=== PATIENT | male | born 1950 | race Caucasian/White ===

== ENCOUNTER 2020-05-19 09:52 | Day surgery (SDC) | payer OTHER ==
[~2020-05-19] VITALS: Ht 180.3 cm; Wt 87.3 kg
[2020-05-19] VITALS (9 sets, daily range): BP systolic 123–150; BP diastolic 71–102
[2020-05-19] MEDS ORDERED: LORazepam 0.5 MG tablet PO PRN (10:30)
[2020-05-19] MEDS ORDERED: diphenhydrAMINE 25mg capsule PO PRN (10:30)
[2020-05-19] MEDS ORDERED: OMEG-167 PO (10:47)
[2020-05-19] MEDS ORDERED: sodium bicarbonate (8.4%) inj. 150 ML in dextrose 5%-water 1,000 ML IV ONE (11:00)
[2020-05-19] MEDS ORDERED: DOCO100C PO (11:01)
[2020-05-19] MEDS ORDERED: GLUC-193 PO (11:01)
[2020-05-19] MEDS ORDERED: ZINC50TA67 PO (11:01)
[2020-05-19] MEDS ORDERED: UBID200C18 PO (11:01)
[2020-05-19] MEDS ORDERED: POTA99TA21 PO (11:01)
[2020-05-19] MEDS ORDERED: ASPI-611 PO (11:01)
[2020-05-19] MEDS ORDERED: CALC-336 PO (11:01)
[2020-05-19] MEDS ORDERED: MULT-1249 PO (11:01)
[2020-05-19] MEDS ORDERED: VITA400C67 PO (11:01)
[2020-05-19 11:31] LABS: ALBUMIN 3.6 G/DL (3.4-5.0); ANION GAP 6 (8-16); BLOOD UREA NITROGEN 21 MG/DL (7-18); BUN/CREATININE RATIO 20.6 (5.4-32.0); CHLORIDE 106 MMOL/L (99-107); CREATININE 1.02 MG/DL (0.60-1.10); GLUCOSE 92 MG/DL (70-104); SODIUM 141 MMOL/L (135-145); TOTAL CARBON DIOXIDE 29.3 MMOL/L (24-32); eGFR 72 ML/MIN
[2020-05-19 11:34] LABS: PARTIAL THROMBOPLASTIN TIME 28 SECONDS (22-32)
[2020-05-19 11:39] LABS: BASOPHILS % (AUTO) 0.7 % (0-1); EOSINOPHILS # (AUTO) 0.2 X10'3 (0-0.9); EOSINOPHILS % (AUTO) 2.8 % (0-6); HEMATOCRIT 47.7 % (42.0-52.0); HEMOGLOBIN 16.3 g/dl (14.0-17.9); LYMPHOCYTES # (AUTO) 1.5 X10'3 (1.1-4.8); MEAN CORPUSCULAR HEMOGLOBIN 31.2 PG (27.0-31.0); MEAN CORPUSCULAR HGB CONC 34.1 g/dL (33.0-36.5); MEAN CORPUSCULAR VOLUME 91.3 FL (78-98); MEAN PLATELET VOLUME 8.5 FL (7.4-10.4); MONOCYTES # (AUTO) 0.7 X10'3 (0-0.9); MONOCYTES % (AUTO) 9.5 % (2-12); NEUTROPHILS # (AUTO) 4.8 X10'3 (1.8-7.7); PLATELET COUNT 197 X10'3 (140-440); RED BLOOD COUNT 5.23 X10'6 (4.70-6.10); RED CELL DISTRIBUTION WIDTH 13.4 % (11.5-14.5); WHITE BLOOD COUNT 7.2 X10'3 (4.5-11.0)
[2020-05-19] MEDS ORDERED: LIDOcaine/PRILOcaine 5gm cream TP ONE (11:40)
[2020-05-19] MEDS ORDERED: fentaNYL/PF 50MCG/1 ML 2ML syringe ONE (11:58)
[2020-05-19] MEDS ORDERED: midazolam 2 mg/2 ml injection ONE (11:58)
[2020-05-19] MEDS ORDERED: verapamil 2.5 mg/ml inj IV ONE (11:58)
[2020-05-19] MEDS ORDERED: LIDOcaine 1% (10mg/ml)w/preservative injection 20ml MDV ONE (11:58)
[2020-05-19] MEDS ORDERED: iohexol 350 MG/ML 50ML vial IV ONE (11:59)
[2020-05-19] MEDS ORDERED: heparin 1,000unit/ml 10ml vial 10 ML ONE (11:59)
[2020-05-19] MEDS ORDERED: iohexol 350MG/ML 100ml bottle IV ONE (11:59)
[2020-05-19] MEDS ORDERED: nitroGLYCERIN-Tridil 50MG/D5W 250 ML IV ONE (11:59)
== END 2020-05-19 18:00 | disposition home or self-care (01) ==
LOC: SSTAY O 09:52
PROVIDERS: ATTEND Internal Medicine Cardiovascular Disease
DX: R94.39 Abnormal result of other cardiovascular function study (principal); I25.10 Atherosclerotic heart disease of native coronary artery without angina pectoris; I10 Essential (primary) hypertension; E78.5 Hyperlipidemia, unspecified; Z79.01 Long term (current) use of anticoagulants; Z87.891 Personal history of nicotine dependence; Z79.899 Other long term (current) drug therapy
CPT/HCPCS: 36415; 80048; 85025; 85610; 85730; 93005; 93458; 99152; 99153; C1769; C1894; J1644; J2001; J2250; J3010; J7070; Q0163; Q9967; A4620; J3490

== ENCOUNTER 2021-04-26 10:32 | Emergency (ER) | payer OTHER, MEDICARE ==
[~2021-04-26] VITALS: Ht 180.3 cm; Wt 85.0 kg
[~2021-04-26 10:32] MED LIST: ASPI-611 PO; CALC-336 PO; DOCO100C PO; GLUC-193 PO; MULT-1249 PO; OMEG-167 PO; POTA99TA21 PO; UBID200C18 PO; VITA400C67 PO; ZINC50TA67 PO
[2021-04-26 10:45] VITALS: BP 144/81
[2021-04-26 11:28] LABS: BASOPHILS # (AUTO) 0.1 X10'3 (0-0.2); BASOPHILS % (AUTO) 0.8 % (0-1); EOSINOPHILS # (AUTO) 0.4 X10'3 (0-0.9); HEMATOCRIT 46.2 % (42.0-52.0); HEMOGLOBIN 15.4 g/dl (14.0-17.9); LYMPHOCYTES # (AUTO) 1.3 X10'3 (1.1-4.8); LYMPHOCYTES % (AUTO) 14.6 % (21-51); MEAN CORPUSCULAR HEMOGLOBIN 30.6 PG (27.0-31.0); MEAN CORPUSCULAR HGB CONC 33.4 g/dL (33.0-36.5); MEAN CORPUSCULAR VOLUME 91.4 FL (78-98); MEAN PLATELET VOLUME 8.1 FL (7.4-10.4); MONOCYTES # (AUTO) 0.9 X10'3 (0-0.9); MONOCYTES % (AUTO) 10.3 % (2-12); NEUTROPHILS # (AUTO) 6.2 X10'3 (1.8-7.7); NEUTROPHILS % (AUTO) 70.3 % (42-75); PLATELET COUNT 246 X10'3 (140-440); RED BLOOD COUNT 5.05 X10'6 (4.70-6.10); RED CELL DISTRIBUTION WIDTH 14.7 % (11.5-14.5); WHITE BLOOD COUNT 8.9 X10'3 (4.5-11.0)
[2021-04-26 12:05] LABS: ALANINE AMINOTRANSFERASE 28 U/L (12-78); ALBUMIN/GLOBULIN RATIO 0.9 (1.1-1.5); ALKALINE PHOSPHATASE 351 IU/L (46-116); ANION GAP 6 (8-16); ASPARTATE AMINO TRANSFERASE 29 U/L (10-37); BILIRUBIN,TOTAL 0.2 MG/DL (0.1-1.0); BLOOD UREA NITROGEN 16 MG/DL (7-18); BUN/CREATININE RATIO 17.6 (5.4-32.0); CALCIUM 8.4 MG/DL (8.5-10.1); CHLORIDE 114 MMOL/L (99-107); CREATININE 0.91 MG/DL (0.60-1.10); GLUCOSE 80 MG/DL (70-104); POTASSIUM 4.2 MMOL/L (3.5-5.1); SODIUM 148 MMOL/L (135-145); TOTAL CARBON DIOXIDE 28.2 MMOL/L (24-32); TOTAL PROTEIN 6.2 G/DL (6.4-8.2); eGFR 82 ML/MIN
[2021-04-26 12:12] LABS: C-REACTIVE PROTEIN 0.88 MG/DL (0.0-0.5); FERRITIN 255 NG/ML (26-388); LACTATE DEHYDROGENASE 350 U/L (85-227)
[2021-04-26] MEDS ORDERED: PRED20TA PO (12:21)
[2021-04-26] MEDS ORDERED: DOXY100C43 PO (12:21)
[2021-04-26 12:44] LABS: D-DIMER 4.91 MG/L FEU (0-0.50)
== END 2021-04-26 12:35 | disposition home or self-care (01) ==
LOC: ER 10:35
DX: J18.9 Pneumonia, unspecified organism (principal); Z20.822 Contact with and (suspected) exposure to COVID-19; J01.00 Acute maxillary sinusitis, unspecified; R51.9 Headache, unspecified; H93.13 Tinnitus, bilateral; R09.89 Other specified symptoms and signs involving the circulatory and respiratory systems; R05 Cough; Z79.82 Long term (current) use of aspirin; Z79.2 Long term (current) use of antibiotics; Z79.899 Other long term (current) drug therapy
CPT/HCPCS: 36415; 71045; 80053; 82728; 83605; 83615; 83880; 84145; 84484; 85025; 85379; 85384; 86140; 87040; 87635; 93005; 99285; C9803